=== PATIENT | male | born 1985 | race Caucasian/White ===

== ENCOUNTER 2019-08-19 22:20 | Emergency (ER) | payer OTHER ==
[~2019-08-19] VITALS: Ht 177.8 cm; Wt 77.1 kg
[~2019-08-19 22:20] MED LIST: CLINDAMYCIN HC300 MG PO; METRONIDAZOLE500 MG PO; NORCO 5-325 TA1 EACH PO; ZOFRAN ODT4 MG SL
== END 2019-08-19 22:54 | disposition home or self-care (01) ==
LOC: ED 22:20
DX: T40.1X1A Poisoning by heroin, accidental (unintentional), initial encounter (principal); F17.200 Nicotine dependence, unspecified, uncomplicated
CPT/HCPCS: 99285; J7030

== ENCOUNTER 2021-06-24 12:09 | Emergency (ER) | payer SELFPAY ==
[~2021-06-24] VITALS: Ht 177.8 cm; Wt 71.7 kg
--- OUTSIDE RECORDS SUMMARY | 2021-06-24 12:10 | XMS ---
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 Penny has no Care Guidelines for this patient. Ashkan VISIT COUNT (12 MO.) 1 NIALL Price TOTAL 1 NOTE: Visits indicate total known visits. ED/C VISIT TRACKING (12 MO.) 06/24/2021 12:09 NIALL [facility] [place] TYPE: Emergency COMPLAINT: - DRUG USE INPATIENT VISIT TRACKING (12 MO.) No inpatient visits to display in this time frame [email or web address]
--- NOTE | 2021-06-25 09:01 | EKG ---
[facility] [address] [place], [place] [address] Signed Normal sinus rhythm Normal ECG No previous ECGs available Confirmed by LIZETTE TALAVERA MD ([id number] on 06/25/2021 9:01:20 AM Electronically Signed By: LIZETTE TALAVERA MD 06/25/21 0901 PATIENT NAME: DILAN MAR Electrocardiogram DATE OF : 81 PHYSICIAN: LIZETTE TALAVERA MD REPORT #: [id number] REPORT IS CONFIDENTIAL AND NOT TO BE RELEASED WITHOUT AUTHORIZATION
== END 2021-06-24 15:40 | disposition home or self-care (01) ==
LOC: ED 12:09
DX: F15.90 Other stimulant use, unspecified, uncomplicated (principal); F11.90 Opioid use, unspecified, uncomplicated; R41.82 Altered mental status, unspecified; F17.200 Nicotine dependence, unspecified, uncomplicated
CPT/HCPCS: 71045; 80053; 81001; 83735; 84484; 85025; 93005; 93010; 99284-25